=== PATIENT | female | born 1950 | race Asian ===

== ENCOUNTER 2016-09-28 18:08 | Inpatient (IN) | payer OTHER ==
[~2016-09-28] VITALS: Ht 160 cm; Wt 48.0 kg
[2016-09-28 18:49] LABS: BASOPHIL % 0.3 % (0-2); PLATELET COUNT 247 x10^3mcL (130-400); RED CELL DISTRIBUTION WIDTH 14.4 % (11.5-14.5)
[2016-09-28] MEDS ORDERED: GOOD SENSE OMEP20 MG PO (18:50)
[2016-09-28] MEDS ORDERED: METFORMIN HCL500 MG PO (18:50)
[2016-09-28] MEDS ORDERED: ATENOLOL25 MG PO (18:50)
[2016-09-28] MEDS ORDERED: HYDROCHLOROTH12.5 M2 PO (18:50)
[2016-09-28] MEDS ORDERED: PRA20 PO (18:51)
[2016-09-28 19:05] LABS: ALBUMIN 3.8 g/dL (3.4-5.0); ALKALINE PHOSPHATASE 118 U/L (46-116); ALT/SGPT 17 U/L (14-59); AST/SGOT 14 U/L (15-37); BILIRUBIN TOTAL 0.6 mg/dL (0.20-1.00); CALCIUM 9.5 mg/dL (8.5-10.1); CARBON DIOXIDE 26.5 mmol/L (21-32); CHLORIDE SERUM 101 mmol/L (98-107); CREATININE SERUM 0.9 mg/dL (0.6-1.0); GFR1 > 60 mL/min; GLUCOSE SERUM 151 mg/dL (74-106); MAGNESIUM 1.7 mg/dL (1.8-2.4); SODIUM SERUM 142 mmol/L (136-145); TOTAL PROTEIN, SERUM 8.1 g/dL (6.4-8.2)
[2016-09-28 19:24] LABS: POTASSIUM SERUM 2.7 mmol/L (3.5-5.1)
[2016-09-28 19:39] LABS: AMYLASE 40 U/L (25-115); LIPASE 160 IU/L (73-393)
[2016-09-28 21:06] LABS: CHOLESTEROL/HDL RATIO 4.2
[2016-09-28 21:14] LABS: FREE T4 1.04 ng/dL (0.76-1.46); FREE THYROXINE INDEX 3.1 ug/dL (1.4-4.5); T3 TOTAL 0.89 ng/mL; T4(THYROXINE) 9.4 ug/dL (4.7-13.3)
[2016-09-28 21:29] VITALS: BP 112/65
[2016-09-28 21:50] LABS: PHOSPHOROUS 4.5 mg/dL (2.5-4.9)
[2016-09-29 01:43] LABS: CALCIUM 8.6 mg/dL (8.5-10.1); CARBON DIOXIDE 28.9 mmol/L (21-32); CHLORIDE SERUM 104 mmol/L (98-107); CREATININE SERUM 0.7 mg/dL (0.6-1.0); GFR1 > 60 mL/min; GLUCOSE SERUM 111 mg/dL (74-106); SODIUM SERUM 141 mmol/L (136-145)
[2016-09-29 06:08] LABS: BASOPHIL % 0.3 % (0-2); PLATELET COUNT 195 x10^3mcL (130-400); RED CELL DISTRIBUTION WIDTH 14.3 % (11.5-14.5)
[2016-09-29 06:23] LABS: CALCIUM 8.4 mg/dL (8.5-10.1); CARBON DIOXIDE 30.3 mmol/L (21-32); CHLORIDE SERUM 105 mmol/L (98-107); CREATININE SERUM 0.8 mg/dL (0.6-1.0); GFR1 > 60 mL/min; GLUCOSE SERUM 112 mg/dL (74-106); MAGNESIUM 1.8 mg/dL (1.8-2.4); POTASSIUM SERUM 3.6 mmol/L (3.5-5.1); SODIUM SERUM 143 mmol/L (136-145)
[2016-09-29 06:28] VITALS: BP 103/53
[2016-09-29 09:20] VITALS: BP 114/57
[2016-09-29 12:07] VITALS: BP 103/46
[2016-09-29 17:22] LABS: UA SPECIFIC GRAVITY <=1.005 (1.005-1.035); microscopic required? YES; urine erythrocyte 2+ (NEGATIVE)
[2016-09-29 17:57] VITALS: BP 103/49
[2016-09-29 21:52] VITALS: BP 108/50
[2016-09-30 06:00] VITALS: BP 129/66
[2016-09-30 06:07] LABS: BASOPHIL % 0.2 % (0-2); PLATELET COUNT 207 x10^3mcL (130-400); RED CELL DISTRIBUTION WIDTH 14.3 % (11.5-14.5)
[2016-09-30 06:29] LABS: CALCIUM 8.7 mg/dL (8.5-10.1); CARBON DIOXIDE 30.7 mmol/L (21-32); CHLORIDE SERUM 106 mmol/L (98-107); CREATININE SERUM 0.8 mg/dL (0.6-1.0); GFR1 > 60 mL/min; GLUCOSE SERUM 106 mg/dL (74-106); POTASSIUM SERUM 3.7 mmol/L (3.5-5.1); SODIUM SERUM 144 mmol/L (136-145)
[2016-09-30] MEDS ORDERED: ATORVASTATIN CA40 M1 PO (09:22)
[2016-09-30] MEDS ORDERED: LISINOPRIL10 MG PO (09:43)
[2016-09-30] MEDS ORDERED: LEXAPRO10 MG PO (09:44)
[2016-09-30 10:06] VITALS: BP 136/68
[2016-09-30 11:39] VITALS: BP 136/68
[2016-09-30 14:08] VITALS: BP 133/65
[2016-09-30] MEDS ORDERED: LOSARTAN POTASS25 M1 PO (14:19)
[2016-09-30] MEDS ORDERED: ZOF4 PO (14:38)
== END 2016-09-30 15:15 | disposition home or self-care (01) | DRG 391 ==
LOC: ED 18:08 → DU 20:03
PROVIDERS: Emergency Medicine; ADMIT Family Medicine
DX: K21.9 Gastro-esophageal reflux disease without esophagitis (principal); N17.0 Acute kidney failure with tubular necrosis; E44.0 Moderate protein-calorie malnutrition; Z68.1 Body mass index [BMI] 19.9 or less, adult; E87.6 Hypokalemia; E83.42 Hypomagnesemia; R31.9 Hematuria, unspecified; E11.65 Type 2 diabetes mellitus with hyperglycemia; E11.59 Type 2 diabetes mellitus with other circulatory complications; I10 Essential (primary) hypertension; E78.5 Hyperlipidemia, unspecified; K76.0 Fatty (change of) liver, not elsewhere classified; F41.0 Panic disorder [episodic paroxysmal anxiety]; D18.09 Hemangioma of other sites; D64.9 Anemia, unspecified; Z87.11 Personal history of peptic ulcer disease; Z79.84 Long term (current) use of oral hypoglycemic drugs
CPT/HCPCS: 83880; 84439; A9500; J2405; J2785; J3480; J3490; J7030; J7042; J7050; Q0092; Q0162